=== PATIENT | female | born 1995 | race Caucasian/White ===

== ENCOUNTER 2016-12-05 00:44 | Inpatient (IN) | payer MEDICAID, OTHER ==
[~2016-12-05] VITALS: Ht 152.4 cm; Wt 49.0 kg
[2016-12-05 00:48] VITALS: Ht 152.4 cm; Wt 49.0 kg
[2016-12-05] MEDS ORDERED: SOD CHLORIDE 0.9% 1,000 ML IV STA (04:30)
[2016-12-05] MEDS ORDERED: ONDANSETRON 4 MG INJ IV STA (04:30)
[2016-12-05 05:00] LABS: URINE BLOOD (Dip) POC Negative (NEGATIVE)
[2016-12-05 05:13] LABS: ADD UMIC YES; URINE BILIRUBIN (Dip) NEGATIVE (NEGATIVE); URINE BLOOD (Dip) NEGATIVE (NEGATIVE); URINE COLOR LT. YELLOW (YELLOW); URINE GLUCOSE (Dip) NEGATIVE (NEGATIVE); URINE KETONES (Dip) NEGATIVE (NEGATIVE); URINE LEUKOCYTE ESTERASE (Dip) TRACE (NEGATIVE); URINE NITRITE (Dip) NEGATIVE (NEGATIVE); URINE TOTAL PROTEIN (Dip) NEGATIVE (NEGATIVE); URINE UROBILINOGEN (Dip) 0.2 E.U./dL (0.1-1.0)
[2016-12-05 05:16] LABS: BASOPHILS % 0.7 % (0.0-2.0); EOSINOPHILS # 0.1 10^3/ul (0.0-0.5); EOSINOPHILS % 1.9 % (0.0-7.0); HEMATOCRIT 32.2 % (37.0-47.0); LYMPHOCYTES # 2.3 10^3/ul (0.8-2.9); LYMPHOCYTES % 42.7 % (18.0-55.0); MEAN CORPUSCULAR HEMOGLOBIN 32.3 pg (29.0-33.0); MEAN CORPUSCULAR HGB CONC 34.2 g/dl (32.0-37.0); MEAN CORPUSCULAR VOLUME 94.2 fl (72.0-104.0); MEAN PLATELET VOLUME 8.3 fl (7.4-10.4); MONOCYTE # 0.4 10^3/ul (0.3-0.9); MONOCYTES % 7.6 % (0.0-13.0); NEUTROPHIL # 2.5 10^3/ul (1.6-7.5); NEUTROPHILS % 47.1 % (30.0-74.0); PLATELET COUNT 183 10^3/UL (140-440); RED BLOOD COUNT 3.42 10^6/ul (4.20-5.40); RED CELL DISTRIBUTION WIDTH 15.4 % (11.5-14.5); UNCORRECTED WBC 5.3 10^3/ul (4.8-10.8); WHITE BLOOD COUNT 5.3 10^3/ul (4.8-10.8)
[2016-12-05 05:23] LABS: ALBUMIN 3.5 g/dl (3.3-4.9)
[2016-12-05 05:26] LABS: ALBUMIN/GLOBULIN RATIO 1.02; BILIRUBIN,INDIRECT 0.2 mg/dl (0-1.1); BILIRUBIN,TOTAL 0.2 mg/dl (0.2-1.3); CREATININE 0.55 mg/dl (0.44-1.00); TOTAL PROTEIN 6.9 g/dl (6.1-8.1)
[2016-12-05 05:58] LABS: CONDITION 1; LH ANALYZER COMMENTS 1
[2016-12-05 06:09] LABS: BACTERIA,URINE RARE; SQUAMOUS EPITHELIAL CELL,UR OCCASIONAL; URINE RBCS NONE SEEN /HPF (0)
--- NOTE | 2016-12-05 07:12 | ERA ---
ER Documentation Chief Complaint Date/Time DATE: 12/05/16 TIME: 07:09 Chief Complaint joe loss 1 lbs in 1 week, hair loss. no appetite, body aches HPI 21-year-old female with failure to thrive. She has lost 25 pounds in 2 weeks. Her hair is falling out of her head she has no appetite and cannot force herself to eat food and has had generalized body aches. She denies any anxiety or depression or other psychiatric diagnoses. Other says that a month and a half ago she used high-dose vitamin a for acne. States that she is occasionally had fevers at home. ROS All systems reviewed and are negative except as per history of present illness. Allergies Allergies: Coded Allergies: No Known Allergy (Unverified , 12/05/16) PMhx/Soc Medical and Surgical Hx: pt denies Medical Hx, pt denies Surgical Hx History of Surgery: No Anesthesia Reaction: No Hx Neurological Disorder: No Hx Respiratory Disorders: No Hx Cardiac Disorders: No Hx Psychiatric Problems: No Hx Miscellaneous Medical Probl: No Hx Alcohol Use: No Hx Substance Use: No Hx Tobacco Use: No Smoking Status: Never smoker Physical Exam Vitals Vital Signs Date Time Temp Pulse Resp B/P Pulse Ox O2 Delivery O2 Flow Rate FiO2 12/05/16 06:30 98.6 86 23 125/66 100 Room Air 12/05/16 05:39 81 17 121/73 100 Room Air 12/05/16 00:48 98.6 89 20 130/71 100 Physical Exam Const: [] Head: Atraumatic Eyes: Normal Conjunctiva ENT: Normal External Ears, Nose and Mouth. Neck: Full range of motion..~ No meningismus. Resp: Clear to auscultation bilaterally Cardio: Regular rate and rhythm, no murmurs Abd: Soft, non tender, non distended. Normal bowel sounds Skin: No petechiae or rashes Back: No midline or flank tenderness Ext: No cyanosis, or edema Neur: Awake and alert Psych: Normal Mood and Affect Result Diagram: 12/05/16 0435 12/05/16 0435 Results 24 hrs Laboratory Tests Test 12/05/16 04:25 12/05/16 04:35 12/05/16 05:00 Urine Bacteria RARE Urine Bilirubin NEGATIVE Urine Clarity CLEAR Urine Color LT. YELLOW Urine Glucose NEGATIVE% Urine Hemoglobin NEGATIVE Urine Ketones NEGATIVE Urine Leukocyte Esterase TRACE Urine Microscopic RBC NONE SEEN/HPF Urine Microscopic WBC 2-5/HPF Urine Nitrite NEGATIVE Urine Specific [place] 1.015 Urine Squamous Epithelial Cells OCCASIONAL Urine Total Protein NEGATIVE Urine Urobilinogen 0.2 E.U./dL Urine pH 7.5 Alanine Aminotransferase (ALT/SGPT) 30IU/L Albumin 3.5g/dl Albumin/Globulin Ratio 1.02 Alkaline Phosphatase 137IU/L Anion Gap 15 Aspartate Amino Transf (AST/SGOT) 38IU/L Basophils # 0.010^3/ul Basophils % 0.7% Blood Morphology Comment Blood Urea Nitrogen 16mg/dl Calcium Level 9.0mg/dl Carbon Dioxide Level 27mmol/L Chloride Level 106mmol/L Creatinine 0.55mg/dl Direct Bilirubin 0.00mg/dl Eosinophils # 0.110^3/ul Eosinophils % 1.9% Globulin 3.40g/dl Glucose Level 95mg/dl Hematocrit 32.2% Hemoglobin 11.0g/dl Indirect Bilirubin 0.2mg/dl Lipase 173U/L Lymphocytes # 2.310^3/ul Lymphocytes % 42.7% Mean Corpuscular Hemoglobin 32.3pg Mean Corpuscular Hemoglobin Concent 34.2g/dl Mean Corpuscular Volume 94.2fl Mean Platelet Volume 8.3fl Monocytes # 0.410^3/ul Monocytes % 7.6% Neutrophils # 2.510^3/ul Neutrophils % 47.1% Nucleated Red Blood Cells # 0.010^3/ul Nucleated Red Blood Cells % 0.0/100WBC Platelet Count 25126^3/UL Potassium Level 4.0mmol/L Red Blood Count 3.4210^6/ul Red Cell Distribution Width 15.4% Sodium Level 144mmol/L Total Bilirubin 0.2mg/dl Total Protein 6.9g/dl White Blood Count 5.310^3/ul Bedside Urine Blood Negative Bedside Urine Glucose (UA) Negative Bedside Urine Ketones (LAB) Negative Bedside Urine Leukocyte Esterase (L Negative Bedside Urine Nitrite (LAB) Negative Bedside Urine Protein (LAB) Negative Bedside Urine pH (LAB) 7.5 Current Medications Medications (Trade) Dose Ordered Sig/Tex Route PRN Reason Start Time Stop Time Status Last Admin Dose Admin Sodium Chloride (NS) 1,000 ml @ 1,000 mls/hr Q1H STAT IV 12/05/16 04:30 12/05/16 05:29 DC 12/05/16 04:47 Ondansetron HCl (Zofran Inj) 4 mg ONCE STAT IV 12/05/16 04:30 12/05/16 04:31 DC 12/05/16 04:47 Procedures/MDM 5-year-old female with no seen laboratory abnormalities to suggest acute infection or sepsis. However she does have notable hair loss and is unable to take by mouth except for a small amount of liquids from time to time. She possibly had a serious vitamin deficiency or other nutritional problems causing the hair loss. She is going to be admitted for further workup of this. Spoke with Dr. De Jesus who will be admitting the patient to medical surgical floor will likely receive a psychiatric consult and possible GI. Departure Diagnosis: Primary Impression: Failure to thrive Additional Impressions: Abnormal weight loss Anemia Patchy loss of hair Condition: Stable DELON PHAN DO Dec 05, 2016 07:12
[2016-12-05] MEDS ORDERED: NACL 0.9% 3 ML SYG IV SCH (07:30)
[2016-12-05] MEDS ORDERED: ACETAMINOPHEN 325 MG TAB PO PRN (07:30)
[2016-12-05] MEDS ORDERED: morphine 2 MG INJ IV PRN (07:30)
[2016-12-05] MEDS ORDERED: ONDANSETRON 4 MG INJ IV PRN ×2 (07:30)
[2016-12-05] MEDS ORDERED: ZOLPIDEM 5 MG TAB PO PRN (07:30)
[2016-12-05] MEDS ORDERED: HYDROCODONE/APAP (5/325) TAB PO PRN (07:30)
[2016-12-05] MEDS ORDERED: IOHEXOL 300MG/ML 150 ML BTL ONE (08:04)
[2016-12-05] MEDS ORDERED: SOD CHLORIDE 0.9% 100 ML ONE (08:04)
--- NOTE | 2016-12-05 08:42 | RADRPT ---
PROCEDURE: CT Chest, Abdomen and Pelvis with contrast. CLINICAL INDICATION: Unknown source of weight loss and hair loss TECHNIQUE: CT scan of the chest, abdomen, and pelvis with contrast was performed on a multi-slice CT scanner. The patient was scanned following the uncomplicated intravenous administration of 100 ml of Omnipaque 300 intravenous contrast. Coronal and sagittal reformatted images were obtained from the axial source images. DLP vol 389.6 mGy CTDI 5.4 mGy-cm COMPARISON: None. FINDINGS: CT chest: A calcified granuloma is seen in the right lower lobe. There is trace peribronchial ground-glass [place] seen in the bilateral lungs posteriorly mostly within the lower lobes and this is of mild sev erity with otherwise no consolidation or effusion or pneumothorax. There are no enlarged axillary or mediastinal lymph nodes. The aorta and vascular structures are g rossly unremarkable. Residual thymic tissue is seen in the anterior mediastinum. The heart size is normal without evidence for pericardial thickening or effusion. There is no acute osseous abnormality. CT abdomen and pelvis: There is normal density of the liver with no evidence of enhancing lesion. There is no biliary alecia yaneli dilatation. The portal vein is intact without thrombus. The gallbladder is unremarkable withou t inflammation. The spleen is normal in size and homogeneous in density. The pancreas is within normal limits witho ut focal lesion or surrounding inflammation. The adrenal glands are symmetric and normal. The kidneys enhance symmetrically without evidence of focal abnormality, inflammation, or hydroneph rosis. No renal calculus or obstructive uropathy or mass lesion is seen. The aorta is of normal caliber. There are no enlarged lymph nodes in the abdomen and pelvis. There is no bowel obstruction or focal bowel wall inflammation. There is a moderately diffusely feca l filled colon. The appendix is unremarkable. There is no acute osseous abnormality. The uterus and adnexal structures are grossly unremarkable. IMPRESSION: There is mild peribronchial inflammation seen within the posterior lungs that could represent bronch iolitis or atypical infection. No mass or lymphadenopathy within the chest, abdomen, and pelvis. There is a fecal filled colon. RPTAT: AA .Julius Case MD, Date Time Electronically viewed and signed by .Khcecelia Case MD, MD on 12/05/2016 08:41 .J/
[2016-12-05 09:06] LABS: CANCER ANTIGEN 125 16.8 U/ml (0.0-35.0); CARCINOEMBRYONIC ANTIGEN 1.3 ng/ml (0.0-5.0)
[2016-12-05 09:10] LABS: CANCER ANTIGEN 19-9 11.2 U/ml (0.0-37.0)
--- NOTE | 2016-12-05 10:48 | HP ---
DATE OF ADMISSION: 12/05/2016 TIME: 6:45 a.m. CHIEF COMPLAINT: Decreased appetite and hair loss. HISTORY OF PRESENT ILLNESS: The patient is a 21-year-old female with no significant medical history . The patient states that approximately 3 months ago she developed some acne and she was taking ove g-zal-bmhwtco vitamin A. She stopped taking Vitamin A approximately a month ago, This past week sh deya reportedly lost her appetite. She has been eating very minimally and she started noticing hair lo ss from her head, arms and eyebrows. She states this has not happened before. She denies any histo ry of any bulimia or anorexia nervosa. She denies any psychiatric history or any acute stress or de pression. The patient is in nursing school, but once again, denies any acute stressors. She denies any abdominal pain, any chest pain or shortness of breath. This has never happened to her in the p ast. PAST MEDICAL HISTORY: Negative. PAST SURGICAL HISTORY: Denies. HOME MEDICATIONS: None. ALLERGIES: NO KNOWN DRUG ALLERGIES. FAMILY HISTORY: Negative for any psychiatric issues. Negative for any significant disorders. SOCIAL HISTORY: Denies alcohol, tobacco, or drug abuse. REVIEW OF SYSTEMS: A 12-point review of systems is negative except as in HPI. PHYSICAL EXAMINATION: VITAL SIGNS: Temperature is 98.6, pulse 86, respiratory rate 23, BP is 125/66, saturation 100% on r oom air. GENERAL: No acute distress, alert and oriented. HEENT: Normocephalic, atraumatic. Hair last is noted in the head. LUNGS: Clear to auscultation. CARDIOVASCULAR: Regular rate and rhythm. ABDOMEN: Nondistended, nontender, soft. EXTREMITIES: No clubbing, cyanosis, or edema. LABORATORIES: White count 7.3, hemoglobin 11.0, platelets 183. Chemistry is within normal limits e xcept alkaline phosphatase is 137, total protein 6.9. UA within normal limits, trace leukocyte are noted, 2 to 5 WBCs. ASSESSMENT AND PLAN: 1. Failure to thrive with significant weight loss and hair loss. The patient reportedly has lost a significant amount of weight over the past week. She has not had any appetite over the past week a nd has been losing her hair. Etiology of this is not fully clear at this time. Will obtain a CT of the chest, abdomen and pelvis to rule out any malignancy. Will send for tumor markers. Will give banana bag, secondary to nutrition versus alopecia. Will follow up on the results. Will give Megace for appetite stimulation. 2. History of acne. The patient was on a significant amount of vitamin A. She stopped approximatel y a month and a half ago. Vitamin A was [id number], it was not any prescription based vitamin A product. It is unclear if this is related to lack of appetite. Once again, this has been stoppe d approximately a month and a half ago. The patient acne has since improved. 3. Prophylaxis: SCDs. Dictated By: RUBEN PEMBERTON MD BS/BHAVANA Conf#: [id number] DID#: [id number]
[2016-12-05] MEDS: MULTIVITAMINS 10 ML, THIAMINE 100 MG, FOLIC ACID 1 MG in SOD CHLORIDE 0.9% 1,000 ML IVPB SCH (10:55)
[2016-12-05] MEDS: MEGESTROL (40 MG/ML) 10ML CUP PO SCH (10:55)
[2016-12-05 11:15] VITALS: PULSE 100; TEMP 99
[2016-12-05] MEDS: DOCUSATE SODIUM 100 MG CAP PO PRN (12:26)
[2016-12-05 13:01] VITALS: BP 105/55; RESP 14
[2016-12-05 20:03] VITALS: BP 122/70; RESP 16
[2016-12-05] MEDS ORDERED: PANTOPRAZOLE (EC) 40 MG TAB PO ONE (23:30)
[2016-12-06 05:51] LABS: BASOPHILS % 0.5 % (0.0-2.0); EOSINOPHILS % 0.7 % (0.0-7.0); HEMATOCRIT 29.8 % (37.0-47.0); HEMOGLOBIN 10.3 g/dl (12.0-16.0); LYMPHOCYTES # 1.7 10^3/ul (0.8-2.9); LYMPHOCYTES % 30.7 % (18.0-55.0); MEAN CORPUSCULAR HEMOGLOBIN 32.6 pg (29.0-33.0); MEAN CORPUSCULAR HGB CONC 34.6 g/dl (32.0-37.0); MEAN PLATELET VOLUME 8.3 fl (7.4-10.4); MONOCYTE # 0.4 10^3/ul (0.3-0.9); MONOCYTES % 7.1 % (0.0-13.0); NEUTROPHIL # 3.3 10^3/ul (1.6-7.5); PLATELET COUNT 172 10^3/UL (140-440); RED BLOOD COUNT 3.17 10^6/ul (4.20-5.40); RED CELL DISTRIBUTION WIDTH 15.4 % (11.5-14.5); UNCORRECTED WBC 5.4 10^3/ul (4.8-10.8); WHITE BLOOD COUNT 5.4 10^3/ul (4.8-10.8)
[2016-12-06 05:52] LABS: POTASSIUM 3.7 mmol/L (3.5-5.1)
[2016-12-06 05:55] LABS: CREATININE 0.5 mg/dl (0.44-1.00)
[2016-12-06 05:56] LABS: CALCIUM 8.2 mg/dl (8.4-10.2); CHOL/HDL RATIO 3.1 RATIO; MAGNESIUM 1.8 mg/dl (1.7-2.5); PHOSPHORUS 4.3 mg/dl (2.5-4.9)
[2016-12-06 06:04] LABS: T3 UPTAKE 38.8 % (23.5-40.5)
[2016-12-06 06:09] LABS: CONDITION 1; LH ANALYZER COMMENTS 1
[2016-12-06] MEDS: PANTOPRAZOLE (EC) 40 MG TAB PO SCH (06:51)
[2016-12-06 07:28] VITALS: BP 105/59; RESP 20
[2016-12-06] MEDS: MEGESTROL (40 MG/ML) 10ML CUP PO SCH (10:21)
[2016-12-06] MEDS: MULTIVITAMINS 10 ML, THIAMINE 100 MG, FOLIC ACID 1 MG in SOD CHLORIDE 0.9% 1,000 ML IVPB SCH (10:22)
[2016-12-06] MEDS: ACETAMINOPHEN 325 MG TAB PO PRN ×2 (14:21→20:18)
[2016-12-06 14:52] LABS: BARBITURATES Negative (NEGATIVE); BENZODIAZEPINES Negative (NEGATIVE); CANNABINOIDS Negative (NEGATIVE); COCAINE Negative (NEGATIVE); OPIATES Negative (NEGATIVE)
--- NOTE | 2016-12-06 15:45 | PN ---
DATE: 12/06/2016 SUBJECTIVE: No acute events overnight. The patient had her blood draws performed and her imaging s tudies performed. Multiple family members are in the room. OBJECTIVE: VITAL SIGNS: Vital signs are stable on physical exam. GENERAL: The patient is lying in bed and sleeping. No acute distress. HEENT: Pupils equal, round, reactive to light. Extraocular muscles intact. NECK: Supple, no thyromegaly. LUNGS: Clear to auscultation bilaterally. CARDIOVASCULAR: S1, S2 heard . ABDOMEN: Soft, nontender, nondistended. Normal bowel sounds. No rebound or guarding. MUSCULOSKELETAL: No lower extremity edema bilaterally. NEUROLOGIC: No focal deficits. LABORATORY: CBC is completely normal. The basic metabolic panel was normal. The alpha fetoprotein , carcinoembryonic antigen and CA-99 and CA-125 levels are normal. Thyroid panel is normal. Jessica sterol panel is normal. UA shows trace leukocyte esterase positive. HIV panel is normal. IMAGING: CT chest, abdomen and pelvis just showed mild peribronchial inflammation within the posteri or lobes, could represent bronchiolitis or atypical infection but no masses or lymphadenopathy withi n the chest, abdomen and pelvis are noted. ASSESSMENT AND PLAN: A 21-year-old female with no significant past medical history coming in with a decreased appetite and hair loss and possible failure to thrive. 1. Failure to thrive. Again given her weight loss and hair loss, we have not found any organic cau ses in the sense that her lab results including thyroid panel, tumor markers, CT abdomen, chest and pelvis results are normal. She has a simple urinary tract infection. There is apparently, upon furth er questioning, some stresses going on with the patient and mother including possible boyfriend of t bill mother. In this event, continue to monitor for now. We will consider getting a tele-psych consu lt. There may be some kind of a depression issue going on, but again, we will consider getting a psy chiatry consult. For now, continue current medications. Continue to monitor. She is as wel l. Consider discontinuing banana bag. 2. History of acne. Again she took significant amounts of vitamin A before admission, which was sto pped about a month ago. Continue to monitor for now, no present issues. 3. Gastrointestinal prophylaxis. Continue Protonix. 4. Deep venous thrombosis prophylaxis, sequential compression devices. 5. Simple urinary tract infection. Add Cipro for 3 days p.o. Dictated By: KENNEDY EASON Conf#: [id number] DID#: [id number]
[2016-12-06] MEDS: DOCUSATE SODIUM 100 MG CAP PO PRN (17:27)
[2016-12-06] MEDS: CIPROFLOXACIN 250 MG TAB GTB SCH (17:28)
[2016-12-06 19:22] VITALS: BP 111/72; RESP 14
[2016-12-07] MEDS: CIPROFLOXACIN 250 MG TAB GTB SCH ×2 (05:17→18:08)
[2016-12-07] MEDS: PANTOPRAZOLE (EC) 40 MG TAB PO SCH (05:17)
[2016-12-07 06:26] LABS: BASOPHILS % 0.3 % (0.0-2.0); EOSINOPHILS % 0.3 % (0.0-7.0); HEMATOCRIT 30.8 % (37.0-47.0); HEMOGLOBIN 10.6 g/dl (12.0-16.0); LYMPHOCYTES # 1.4 10^3/ul (0.8-2.9); LYMPHOCYTES % 25.9 % (18.0-55.0); MEAN CORPUSCULAR HEMOGLOBIN 32.5 pg (29.0-33.0); MEAN CORPUSCULAR HGB CONC 34.3 g/dl (32.0-37.0); MEAN CORPUSCULAR VOLUME 94.8 fl (72.0-104.0); MEAN PLATELET VOLUME 8.4 fl (7.4-10.4); MONOCYTE # 0.3 10^3/ul (0.3-0.9); MONOCYTES % 5.7 % (0.0-13.0); NEUTROPHIL # 3.7 10^3/ul (1.6-7.5); NEUTROPHILS % 67.8 % (30.0-74.0); PLATELET COUNT 178 10^3/UL (140-440); RED BLOOD COUNT 3.25 10^6/ul (4.20-5.40); RED CELL DISTRIBUTION WIDTH 15.1 % (11.5-14.5); UNCORRECTED WBC 5.5 10^3/ul (4.8-10.8); WHITE BLOOD COUNT 5.5 10^3/ul (4.8-10.8)
[2016-12-07 06:28] LABS: CONDITION 1; LH ANALYZER COMMENTS 1
[2016-12-07 06:41] LABS: POTASSIUM 3.8 mmol/L (3.5-5.1)
[2016-12-07 06:43] LABS: CREATININE 0.53 mg/dl (0.44-1.00)
[2016-12-07 06:44] LABS: CALCIUM 8.6 mg/dl (8.4-10.2)
[2016-12-07 07:58] VITALS: BP 111/63; RESP 18
[2016-12-07] MEDS: MEGESTROL (40 MG/ML) 10ML CUP PO SCH (09:02)
[2016-12-07] MEDS: MULTIVITAMINS 10 ML, THIAMINE 100 MG, FOLIC ACID 1 MG in SOD CHLORIDE 0.9% 1,000 ML IVPB SCH (09:03)
--- NOTE | 2016-12-07 15:50 | PSY ---
Date/Time of Note Date/Time of Note DATE: 12/07/16 TIME: 15:16 Psychiatric Subjective Eval Consent Pt consented to telemedicine: Yes Subjective Evaluation Patient location: emergency Chief Complaint: joe loss 1 lbs in 1 week, hair loss. no appetite, body aches History of present illness Pt admitted for failure to thrive. Pt has been having hair loss on her head, arms and legs for past 2 weeks. Pt has had decreased appetite for 3 weeks and has been also feeling nauseous as well. Pt denies pulling her hair. Pt had been taking Vitamin A for 3.5 months for acne and had stopped taking it past 2 months. Pt has lost 10-13 lbs in 1.5 weeks. Pt denies any depressive sx. Mood is fair. Denies any excessive anxiety or panic attacks. She denies any current stressors other than her medical issue. Pt denies any hypomania or sara or paranoia sx. Pt lives with mother and has a good relationship with her. Pt denies any previous psychiatric hx. Pt denies any current SI/HI/AH/VH. Past psychiatric history Denies any previous psychiatric hospitalization. Pt denies ever seeing a therapist before. Pt denies being on any psychotropic medications. Pt denies any hx of cutting or any suicide attempts. Hospitalization: no Family History Denies. 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 Psychiatric Objective Eval Review of Systems: Review of Systems: Not Applicable Physical Examination: Physical Examination: Applicable Appetite: Decreased Energy: Decreased Interest: Adequate Mental Status Examination: Appearance: Groomed Eye Contact: Good Psychomotor Activity: Normal Behavior: Friendly Speech: Clear AFFECT: Appropriate Mood: Appropriate/Full Though Process: Linear Thought Content: Normal Suicidal: No Homicidal: No On 72 hour hold: No Orientation: x4 Cognition: Alert Insight: Intact Judgement: Intact Attention Span: Intact Laboratory Results Laboratory Tests Test 12/06/16 04:35 12/06/16 04:48 12/07/16 05:25 Urine Amphetamines Screen Negative Urine Barbiturates Negative Urine Benzodiazepines Screen Negative Urine Cannabinoids Negative Urine Cocaine Screen Negative Urine Opiates Screen Negative Anion Gap 11 15 Basophils # 0.010^3/ul 0.010^3/ul Basophils % 0.5% 0.3% Blood Morphology Comment Blood Urea Nitrogen 11mg/dl 12mg/dl Calcium Level 8.2mg/dl 8.6mg/dl Carbon Dioxide Level 24mmol/L 22mmol/L Chloride Level 109mmol/L 108mmol/L Cholesterol Level 153mg/dl Cholesterol/HDL Ratio 3.1RATIO Creatinine 0.50mg/dl 0.53mg/dl Eosinophils # 0.010^3/ul 0.010^3/ul Eosinophils % 0.7% 0.3% Ethyl Alcohol Level < 10.0mg/dl Free Thyroxine Index 2.41ug/ml Glucose Level 110mg/dl 99mg/dl HDL Cholesterol 49mg/dl Hematocrit 29.8% 30.8% Hemoglobin 10.3g/dl 10.6g/dl Hemoglobin A1c 5.0% LDL Cholesterol, Calculated 92mg/dl Lymphocytes # 1.710^3/ul 1.410^3/ul Lymphocytes % 30.7% 25.9% Magnesium Level 1.8mg/dl Mean Corpuscular Hemoglobin 32.6pg 32.5pg Mean Corpuscular Hemoglobin Concent 34.6g/dl 34.3g/dl Mean Corpuscular Volume 94.0fl 94.8fl Mean Platelet Volume 8.3fl 8.4fl Monocytes # 0.410^3/ul 0.310^3/ul Monocytes % 7.1% 5.7% Neutrophils # 3.310^3/ul 3.710^3/ul Neutrophils % 61.0% 67.8% Nucleated Red Blood Cells # 0.010^3/ul 0.010^3/ul Nucleated Red Blood Cells % 0.0/100WBC 0.0/100WBC Phosphorus Level 4.3mg/dl Platelet Count 67247^3/UL 31312^3/UL Potassium Level 3.7mmol/L 3.8mmol/L Red Blood Count 3.1710^6/ul 3.2510^6/ul Red Cell Distribution Width 15.4% 15.1% Sodium Level 140mmol/L 141mmol/L Thyroxine (T4) 6.2ug/dl Triglycerides Level 61mg/dl Triiodothyronine (T3) Uptake 38.8% White Blood Count 5.410^3/ul 5.510^3/ul Prealbumin 20.5mg/dl Thyroid Stimulating Hormone (TSH) 0.405MIU/L Assessment and Plan Assessment/Diagnosis [place] I: No diagnosis [place] III: weight loss, hair loss Recommendation/Plan Follow-up/Disposition Pt currently denies any sx of depression, anxiety or any other psychiatric sx currently. She reports lisa is helping with her appetite. Pt isn't interested in any psychotropic medications, also pt is denying any psychiatric sx. LOBO BOWSER Dec 07, 2016 15:30
--- NOTE | 2016-12-07 17:02 | RADRPT ---
PROCEDURE: CT Brain without contrast. CLINICAL INDICATION: Headache. TECHNIQUE: A CT of the brain without contrast was performed utilizing axial sections from the skul l base through the vertex. The patient was scanned without intravenous contrast enhancement. Sagitta l and coronal reformatted images were obtained using the data from the axial images. Total exam DLP is 720.23 mGy-cm. CTDIvol is 44.97 mGy. One or more of the following dose reduction techniques we re used: Automated exposure control, adjustment of the mA and/or kV according to patient size, use o f iterative reconstruction technique. COMPARISON: None available FINDINGS: There is normal singh-white matter differentiation. The ventricles and cisterns are normal. There is no intracranial hemorrhage or space-occupying lesion. There is no skull fracture or lytic lesion. IMPRESSION: 1. Normal noncontrast CT scan of the brain. RPTAT: QQ .Ron Kent MD, MD Date Time Electronically viewed and signed by .Ron Kent MD, MD on 12/07/2016 17:02 .R/
--- NOTE | 2016-12-07 17:13 | PN ---
Date/Time of Note Date/Time of Note DATE: 12/07/16 TIME: 17:05 Assessment/Plan VTE Prophylaxis VTE Prophylaxis Intervention: ambulation Lines/Catheters IV Catheter Type [facility]from [facility]): Saline Lock Urinary Cath still in place: No Assessment/Plan Assessment/Plan 21 yo F with 1. Alopecia / tinnitus / weight loss in the setting on Vit A use, concerning for VIt A toxicity Will order brain CT to r/o pseudotumor cerebri Telepsych to ensure no underlying psych pathology Abstain from further Vit A therapy and see dermatology for acne treatment Restrict vitamin A-rich foods (especially sources of pre-formed vitamin A, such as liver, kidney and egg yolk) Check serum TSH and retinol levels supportive care Subjective 24 Hr Interval Summary Free Text/Dictation Patient seen and examined. Patient reports alopecia, poor apetitie, vertigo and tinnitus. Family also concerned for depression +hx of VIT A use for acne Exam/Review of Systems Vital Signs Vitals Vital Signs Date Time Temp Pulse Resp B/P Pulse Ox O2 Delivery O2 Flow Rate FiO2 12/07/16 07:58 98.5 88 18 111/63 98 12/05/16 11:15 Room Air Intake and Output 12/06/16 12/06/16 12/07/16 14:59 22:59 06:59 Intake Total 2031.2 ml 580 ml Balance 2031.2 ml 580 ml Exam Constitutional: alert, oriented Psych: No nl mood/affect (blank affect), No suicidal Head: normocephalic Eyes: PERRL, No icteric ENMT: mucosa pink and moist Neck: non-tender, supple Respiratory: clear to auscultation, normal air movement Cardiovascular: regular rate and rhythm Gastrointestinal: bowel sounds, non-tender, soft Genitourinary - Female: other (deffered) Musculoskeletal: nl extremities to inspection Extremities: No edema Neurological: lethargic (mildly), nl mental status, nl speech Skin: other (no skin discoloration), No rash or lesions Results Result Diagram: 12/07/16 0525 12/07/16 0525 Results 24 hrs Laboratory Tests Test 12/07/16 05:25 Anion Gap 15 Basophils # 0.0 Basophils % 0.3 Blood Morphology Comment Blood Urea Nitrogen 12 Calcium Level 8.6 Carbon Dioxide Level 22 Chloride Level 108 Creatinine 0.53 Eosinophils # 0.0 Eosinophils % 0.3 Glucose Level 99 Hematocrit 30.8 L Hemoglobin 10.6 L Lymphocytes # 1.4 Lymphocytes % 25.9 Mean Corpuscular Hemoglobin 32.5 Mean Corpuscular Hemoglobin Concent 34.3 Mean Corpuscular Volume 94.8 Mean Platelet Volume 8.4 Monocytes # 0.3 Monocytes % 5.7 Neutrophils # 3.7 Neutrophils % 67.8 Nucleated Red Blood Cells # 0.0 Nucleated Red Blood Cells % 0.0 Platelet Count 178 Potassium Level 3.8 Prealbumin 20.5 Red Blood Count 3.25 L Red Cell Distribution Width 15.1 H Sodium Level 141 Thyroid Stimulating Hormone (TSH) 0.405 L White Blood Count 5.5 Medications Medications Current Medications Ondansetron HCl (Zofran Inj) 4 mg Q6H PRN IV NAUSEA AND/OR VOMITING; Start 12/05 at 07:30 Acetaminophen (Tylenol Tab) 650 mg Q6H PRN PO PAIN LEVEL 1-3 OR FEVER Last administered on 12/06/16 20:18; Admin Dose 650 MG; Start 12/05/16 at 07:30 Acetaminophen/ Hydrocodone Bitart ([place] (5/325)) 1 tab Q6H PRN PO MODERATE PAIN LEVEL 4-6 Last administered on 12/05/16 20:14; Admin Dose 1 TAB; Start 12/05 at 07:30 Morphine Sulfate (morphine) 2 mg Q4H PRN IV SEVERE PAIN LEVEL 7-10; Start at 07:30 Docusate Sodium (Colace) 100 mg Q12H PRN PO CONSTIPATION Last administered on 17:27; Admin Dose 100 MG; Start 12/05/16 at 07:30 Zolpidem Tartrate (Ambien) 5 mg QHS PRN PO SLEEP; Start 12/05/16 at 07:30 Megestrol Acetate 800 mg 800 mg DAILY PO Last administered on 12/07/16 09:02; Admin Dose 800 MG; Start 12/05/16 at 10:00 Multivitamins/ Thiamine HCl/ Folic Acid/Sodium Chloride (Mvi-12 Adult/ Vitamin B1/Folic Acid/NS) 1,011.2 ml @ 125 mls/ hr DAILY@09 IVPB Last administered on 12/07/16 09:03; Admin Dose 125 MLS/HR; Start 12/05/16 at 10:30 Pantoprazole (Protonix Tab) 40 mg DAILY@06 PO Last administered on 12/07/16t 05: 17; Admin Dose 40 MG; Start 12/06/16 at 06:00 Ciprofloxacin (Cipro) 250 mg BID@06,18 GTB Last administered on 12/07/16t 05:17 ; Admin Dose 250 MG; Start 12/06/16 at 18:00; Stop 12/09/16 at 09:00 Procedures Procedures PROCEDURE: CT Chest, Abdomen and Pelvis with contrast. CLINICAL INDICATION: Unknown source of weight loss and hair loss TECHNIQUE: CT scan of the chest, abdomen, and pelvis with contrast was performed on a multi-slice CT scanner. The patient was scanned following the uncomplicated intravenous administration of 100 ml of Omnipaque 300 intravenous contrast. Coronal and sagittal reformatted images were obtained from the axial source images. DLP vol 389.6 mGy CTDI 5.4 mGy-cm COMPARISON: None. FINDINGS: CT chest: A calcified granuloma is seen in the right lower lobe. There is trace peribronchial ground-glass opacities seen in the bilateral lungs posteriorly mostly within the lower lobes and this is of mild severity with otherwise no consolidation or effusion or pneumothorax. There are no enlarged axillary or mediastinal lymph nodes. The aorta and vascular structures are grossly unremarkable. Residual thymic tissue is seen in the anterior mediastinum. The heart size is normal without evidence for pericardial thickening or effusion. There is no acute osseous abnormality. CT abdomen and pelvis: There is normal density of the liver with no evidence of enhancing lesion. There is no biliary ductal dilatation. The portal vein is intact without thrombus. The gallbladder is unremarkable without inflammation. The spleen is normal in size and homogeneous in density. The pancreas is within normal limits without focal lesion or surrounding inflammation. The adrenal glands are symmetric and normal. The kidneys enhance symmetrically without evidence of focal abnormality, inflammation, or hydronephrosis. No renal calculus or obstructive uropathy or mass lesion is seen. The aorta is of normal caliber. There are no enlarged lymph nodes in the abdomen and pelvis. There is no bowel obstruction or focal bowel wall inflammation. There is a moderately diffusely fecal filled colon. The appendix is unremarkable. There is no acute osseous abnormality. The uterus and adnexal structures are grossly unremarkable. IMPRESSION: There is mild peribronchial inflammation seen within the posterior lungs that could represent bronchiolitis or atypical infection. No mass or lymphadenopathy within the chest, abdomen, and pelvis. There is a fecal filled colon. RPTAT: AA .Julius Case MD, MD Date Time Electronically viewed and signed by .Julius Case MD, MD on 12/05/2016 08:41 JES BLAS Dec 07, 2016 17:13
[2016-12-07 19:40] VITALS: BP 115/67; RESP 14
[2016-12-08] MEDS: PANTOPRAZOLE (EC) 40 MG TAB PO SCH (05:58)
[2016-12-08] MEDS: CIPROFLOXACIN 250 MG TAB GTB SCH (05:58)
[2016-12-08 06:32] LABS: BASOPHILS % 0.3 % (0.0-2.0); EOSINOPHILS % 0.2 % (0.0-7.0); HEMATOCRIT 31.3 % (37.0-47.0); HEMOGLOBIN 10.7 g/dl (12.0-16.0); LYMPHOCYTES # 1.6 10^3/ul (0.8-2.9); LYMPHOCYTES % 23.8 % (18.0-55.0); MEAN CORPUSCULAR HEMOGLOBIN 32.5 pg (29.0-33.0); MEAN CORPUSCULAR HGB CONC 34.3 g/dl (32.0-37.0); MEAN CORPUSCULAR VOLUME 94.8 fl (72.0-104.0); MEAN PLATELET VOLUME 8.3 fl (7.4-10.4); MONOCYTE # 0.5 10^3/ul (0.3-0.9); NEUTROPHIL # 4.5 10^3/ul (1.6-7.5); NEUTROPHILS % 67.7 % (30.0-74.0); PLATELET COUNT 194 10^3/UL (140-440); RED CELL DISTRIBUTION WIDTH 15.4 % (11.5-14.5); UNCORRECTED WBC 6.7 10^3/ul (4.8-10.8); WHITE BLOOD COUNT 6.7 10^3/ul (4.8-10.8)
[2016-12-08 06:37] LABS: CONDITION 1; LH ANALYZER COMMENTS 1
[2016-12-08 06:44] LABS: POTASSIUM 3.6 mmol/L (3.5-5.1)
[2016-12-08 06:47] LABS: CREATININE 0.48 mg/dl (0.44-1.00)
[2016-12-08 06:48] LABS: CALCIUM 8.6 mg/dl (8.4-10.2)
[2016-12-08 07:13] LABS: THYROID STIMULATING HORMONE 0.519 MIU/L (0.465-4.680)
[2016-12-08 08:01] VITALS: BP 110/58; RESP 18
[2016-12-08] MEDS: MULTIVITAMINS 10 ML, THIAMINE 100 MG, FOLIC ACID 1 MG in SOD CHLORIDE 0.9% 1,000 ML IVPB SCH (08:05)
[2016-12-08] MEDS: MEGESTROL (40 MG/ML) 10ML CUP PO SCH (08:05)
[2016-12-08] MEDS ORDERED: FOLI-49 PO (11:23)
[2016-12-08] MEDS ORDERED: THIA100T10 PO (11:23)
[2016-12-08] MEDS ORDERED: MEGE400O4 PO (11:23)
[2016-12-08 12:27] LABS: T3 UPTAKE 38.4 % (23.5-40.5)
--- NOTE | 2016-12-09 07:30 | DS ---
DATE OF ADMISSION: 12/05/2016 DATE OF DISCHARGE: 12/08/2016 PRESENTING COMPLAINT: Decreased appetite, hair loss. ADMISSION DIAGNOSES: 1. Failure to thrive with significant weight loss and hair loss. 2. History of acne. CONSULTANTS ON THE CASE: Telepsychiatry, Dr. Juliane Mack FINAL DIAGNOSES: 1. Alopecia. 2. Tinnitus. 3. Weight loss in the setting of a 4- to 5-month history of vitamin A use with concern for vitamin A toxicity causing her symptoms. INTERVENTIONS: 1. The patient had CT of the chest, abdomen and pelvis that just showed constipation and mild perib ronchial inflammation for which patient was not symptomatic. 2. She had a CT of the brain to rule out pseudotumor cerebri that was read as normal. 3. She had a telepsychiatric evaluation with Dr. Mack that did not reveal any psychiatric abnormal ities. CURRENT CONDITION: Stable. SHORT HOSPITALIZATION COURSE: Full details are available in chart for review. In summary, this 21- year-old female was brought to the emergency room by her family because of concerns for severe weigh t loss and alopecia. The patient was found, per the family, to have lost significant weight in a sh ort space of time, and the only concerning history was the fact that a few months ago she was concer trudy about severe acne and decided to self-medicate with vitamin A. She was admitted to rule out a m ore sinister cause of her symptoms, and thyroid evaluation, CAT scan of her abdomen, pelvis and ches t including her brain as well as urinalysis all came back negative. HIV screen was also negative, a nd via exclusion, her symptoms were likely attributed to vitamin A toxicity. 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 Based on this, she was discharged in st able condition, and the recommendation was for patient to avoid vitamin A and sources of heavy form of vitamin A including egg yolk, animal liver and kidney. A serum retinol level was checked, but it is still pending at this point. It's a send-out. She will follow up with a primary care physician of her choosing, and if symptoms do not improve over the next couple of months, the patient is advi sed to seek further medical attention. I have spoken with herself and her family in detail. I have answered questions. DISCHARGE MEDICATIONS: 1. Megace 800 mg p.o. daily for appetite stimulation. 2. Thiamine 100 mg p.o. daily. 3. Folic acid 1 mg p.o. daily. RECOMMENDED DIET: Regular. ACTIVITY: As tolerated. FOLLOWUP: As above. Discharge time 40 minutes. Dictated By: JES BLAS MD, BA/BHAVANA Conf#: [id number] DID#: [id number]
== END 2016-12-08 15:25 | disposition home or self-care (01) | DRG 918 ==
LOC: E/R 00:44 → MS2 07:09
PROVIDERS: ADMIT Internal Medicine; ATTEND Internal Medicine
DX: T45.2X1A Poisoning by vitamins, accidental (unintentional), initial encounter (principal); R62.7 Adult failure to thrive; L65.8 Other specified nonscarring hair loss; H93.19 Tinnitus, unspecified ear; R63.4 Abnormal weight loss; L70.9 Acne, unspecified
CPT/HCPCS: 70450; 71260; 74177; 80048; 80053; 80061; 80306; 80307; 81001; 81003; 82105; 82378; 83036; 83690; 83735; 84100; 84134; 84436; 84443; 84479; 84590; 84703; 85025; 86301; 86304; 86703; J2405; J3411; J7030; Q9967